=== PATIENT | female | born 1985 | race Caucasian/White ===

== ENCOUNTER 2016-10-01 10:22 | Observation (INO) | payer BC ==
[2016-10-01 10:54] VITALS: RESP 16
[2016-10-01 16:27] VITALS: BP 140/96; PULSE 74; TEMP 98.2
== END 2016-10-01 14:20 | disposition home or self-care (01) ==
LOC: OB 10:22
PROVIDERS: ADMIT Family Medicine; ATTEND Family Medicine
DX: O46.93 Antepartum hemorrhage, unspecified, third trimester (principal); Z3A.40 40 weeks gestation of pregnancy
CPT/HCPCS: 59025

== ENCOUNTER 2018-11-04 12:59 | Inpatient (IN) | payer BC | END 2018-11-06 13:50 | disposition home or self-care (01) | LOC: OB 12:59 ==